=== PATIENT | female | born 1940 | race Caucasian/White ===

== ENCOUNTER 2019-01-23 15:01 | Inpatient (IN) | payer OTHER ==
--- NOTE | 2019-01-23 17:59 | EDPHY ---
H & P Time Seen by Provider: 01/23/19 15:05 HPI/ROS: HPI Tripped and fell. Left arm pain. 78-year-old female by private vehicle with her daughter. This patient currently lives by herself. She reports that prior to arrival she tripped over her pet poodle. She landed on her left side. She complains of isolated left arm pain. She did not hit her head. She denies any neck pain. No loss of consciousness. She is not on anticoagulation or antiplatelet agents. She denies any loss of sensation or weakness in her extremities. Last meal was yesterday. She has not had nothing to eat today. ROS: Constitutional: No fever, no chills. No weakness. Respiratory: No cough. No shortness of breath. Cardiac: No chest pain, no palpitations. Gastrointestinal: No abdominal pain, no vomiting, no diarrhea. Musculoskeletal: No back pain. No neck pain. As above. Denies other extremity pain. Skin: No rashes. No lacerations. She reports a contusion to her left arm. Neurological: No headache. No focal weakness or altered sensation. Past medical history: Hypertension. Social history: Her daughter is with her in the room. She currently lives alone. Nonsmoker. No alcohol. Physical Exam: General Appearance: Alert, she is not distressed. This patient is responding to questions appropriately and in full sentences. The patient is very thin in stature. She appears well hydrated. Head: Normocephalic atraumatic. Face: Facial bones are stable on palpation. Eyes: Pupils equal and round and reactive to light, no pallor or injection. No lid erythema or edema. ENT, Mouth: Mucous membranes moist. Dentition is intact. No malocclusion of the jaw. No tongue lacerations or abrasions. Pharynx is clear. The bilateral nasal canals are clear. No septal hematoma. Respiratory: There are no retractions, lungs are clear to auscultation with good air movement bilaterally. Chest wall is stable to AP and lateral palpation. Cardiovascular: Regular rate and rhythm. No murmur. Gastrointestinal: Abdomen is soft and nontender, no masses, bowel sounds normal. Neurological: Motor sensory function is intact. Cranial nerves are normal. Cerebellar function intact. Skin: Warm and dry, no rashes. No lacerations, abrasions or contusions. Musculoskeletal: Neck is supple and nontender. The trachea is midline. No midline cervical, thoracic, lumbar or sacral tenderness on palpation. No flank tenderness on palpation. Left upper extremity significant for swelling and ecchymosis mid to proximal arm. This is tender on palpation. She has pain in this area with any attempted active or passive motion. The left glenohumeral joint appears intact. The skin is intact in the left upper extremity is neurovascularly intact. Extremities are symmetrical, full range of motion except noted. All joints in the bilateral upper and bilateral lower extremities range without pain or impingement except noted. No tenderness on palpation of the long bones in the bilateral upper and bilateral lower extremities except noted. Psychiatric: No agitation. No depression. Database: EKG: Imaging: Left shoulder x-ray series: Transverse fracture through the surgical neck of the humerus with medial displacement of the proximal humerus. The glenohumeral joint appears intact. Procedures: Emergency department course: Triage vital signs reviewed. She is mildly tachycardic. Vital signs are otherwise unremarkable. She is afebrile. Patient sent for x-rays. 5:45 p.m., the patient was re-evaluated, results of x-ray and diagnosis of fracture of the proximal humerus discussed with her and her daughter. The patient's left upper extremity was placed in a sling. The left upper extremity is neurovascularly intact. Orthopedics paged. 5:50 p.m., spoke with Dr. Zac Wynn of the Orthopedic service. Case discussed with him in detail. He feels that surgical management as well as nonsurgical management her viable options. Given the patient's level of pain. On the fact that she lives alone. Plan will be to admit her to the hospitalist service have her evaluated by Dr. Wynn and then dispositioned by Dr. Wynn of the hospitalist service. This plan was discussed with the patient and her daughter. They both endorse. Hospitalist paged. 6:00 p.m., spoke with on-call hospitalist. Case discussed in detail. Patient accepted for admission to the hospitalist service with Orthopedics to consult as noted above. The patient's remaining emergency department course under my care has been uneventful. The patient was admitted in stable condition to the hospitalist service. 6:05 p.m., spoke with Dr. Wynn. He has looked at the x-rays. He now feels that the patient will require operative management. Plan as above. He will see this patient on the floor this afternoon. 6:20 p.m., spoke with on-call hospitalist Dr. Nicholas. Case discussed in detail with her. She accepts this patient for admission to the hospitalist service. The patient's remaining emergency department course under my care has been uneventful. The patient was admitted in stable condition to the hospitalist service. Differential Diagnosis: The differential diagnosis on this patient includes but is not limited to ground level fall, closed left humerus surgical neck fracture. Traumatic brain injury, cervical spine injury, other significant traumatic injury the noted unlikely. This represents a partial list of diagnoses considered. These considerations are based on history, physical exam, past history, reassessment and diagnostic testing. Smoking Status: Current some day smoker Constitutional: Initial Vital Signs Temperature (C) 36.6 C 01/23/19 15:12 Heart Rate 118 H 01/23/19 15:12 Respiratory Rate 18 01/23/19 15:12 Blood Pressure 105/72 01/23/19 15:12 O2 Sat (%) 90 L 01/23/19 15:12 O2 Delivery Mode Room Air O2 (L/minute) 3 Allergies/Adverse Reactions: No Known Allergies Allergy (Unverified 01/23/19 15:16) Home Medications: Medication Instructions Recorded Brimonidine Tartrate [Brimonidine 1 drop RTEYE BID 01/23/19 Tartrate] Dorzolamide/Timolol [Cosopt (*)] 1 drop EACHEYE BID 01/23/19 amLODIPine BESYLATE [Amlodipine 5 mg PO HS 01/23/19 Besylate] Medical Decision Making - Data Points Laboratory Results: Laboratory Results 01/24/19 03:24 01/24/19 03:24 Medications Given: Hydrocodone Bitart/Acetaminophen ([place] 5/325) 0.5 - 1 tab PO Q4HRS PRN PRN Reason: Pain, Moderate Able to Take PO Stop: 02/02/19 19:06 Last Admin: 01/27/19 05:54 Dose: 1 tab Amlodipine Besylate (Norvasc) 5 mg PO HS [facility] Stop: 07/22/19 20:59 Last Admin: 01/26/19 21:02 Dose: 5 mg Brimonidine Tartrate ([place]ph[place] 0.2%) 1 drops RTEYE BID [facility] Stop: 07/22/19 20:59 Last Admin: 01/26/19 21:10 Dose: Not Given Dorzolamide/Timolol (Cosopt) 1 drops EACHEYE BID [facility] Stop: 07/22/19 20:59 Last Admin: 01/26/19 21:03 Dose: 1 drop Enoxaparin Sodium (Lovenox) 30 mg SC Q24H [facility] Stop: 07/25/19 15:59 Last Admin: 01/26/19 17:05 Dose: 30 mg Discontinued Medications Enoxaparin Sodium (Lovenox) 30 mg SC ONCE ONE Stop: 01/24/19 15:31 Last Admin: 01/24/19 17:55 Dose: Not Given Enoxaparin Sodium (Lovenox) 30 mg SC ONCE ONE Stop: 01/24/19 18:01 Last Admin: 01/24/19 18:00 Dose: 30 mg Fentanyl (Sublimaze) 25 - 100 mcg IVP Q5M PRN PRN Reason: PACU, IMMEDIATE Pain control Stop: 01/25/19 17:24 Last Admin: 01/25/19 17:55 Dose: 50 mcg Sodium Chloride (Ns) 1,000 mls @ 50 mls/hr IV CONT [facility] Stop: 01/24/19 15:14 Last Admin: 01/23/19 21:58 Dose: 1,000 mls Cefazolin Sodium/Dextrose (Ancef) 100 mls @ 200 mls/hr IV ONCALL ONE PRN Reason: Protocol Stop: 01/25/19 08:52 Last Admin: 01/25/19 15:20 Dose: 100 mls Potassium Chloride/Dextrose/Sod Cl (D5w 1/2 Ns W/ 20 Kcl/L) 1,000 mls @ 75 mls/ hr IV CONT [facility] Stop: 07/24/19 11:29 Last Admin: 01/26/19 00:17 Dose: 1,000 mls Lactated Ringer's (Lr) 1,000 mls @ 0 mls/hr IV ONCE ONE PRN Reason: KVO Stop: 01/25/19 13:32 Last Admin: 01/25/19 13:59 Dose: 1,000 mls Cefazolin Sodium/Dextrose (Ancef) 100 mls @ 200 mls/hr IV Q8H [facility] PRN Reason: Protocol Stop: 01/26/19 07:29 Last Admin: 01/26/19 06:30 Dose: 100 mls Ropivacaine (Naropin) Confirm Administered Dose 20 mg EP .STK-MED ONE Stop: 01/25/19 13:16 Last Admin: 01/25/19 16:33 Dose: 20 mg Ropivacaine (Naropin) Confirm Administered Dose 20 mg EP .STK-MED ONE Stop: 01/25/19 15:49 Last Admin: 01/25/19 16:33 Dose: 20 mg Departure - Departure Disposition: [facility] Inpatient Acute Clinical Impression: Fall from ground level, Closed fracture of humerus
[2019-01-23 18:35] LABS: PLATELET COUNT 150 10^3/uL (150-400)
[2019-01-23 18:49] LABS: INR 1.02 (0.83-1.16)
[2019-01-23] MEDS ORDERED: ONDANSETRON DISINTEGRATING 4 MG TAB PO PRN (19:07)
[2019-01-23] MEDS ORDERED: ONDANSETRON 4 MG/2 ML VIAL IVP PRN (19:07)
[2019-01-23] MEDS ORDERED: ACETAMINOPHEN 325 MG TAB PO PRN (19:07)
[2019-01-23] MEDS ORDERED: HYDROmorphONE/DILAUDID 1 MG/ML INJ IVP PRN (19:07)
[2019-01-23] MEDS ORDERED: METOPROLOL TARTRATE 5 MG/5 ML INJ IVP PRN (19:13)
[2019-01-23] MEDS ORDERED: NS 1,000 ML IV SCH (19:15)
--- NOTE | 2019-01-23 19:21 | PDGENHP ---
History and Physical - Chief Complaint Fall, left arm pain - History of Present Illness Source-patient goes by the name of Lisette. She is able to provide majority of the history. She is a good historian but cannot recall dosing and names of her medications. EMR was reviewed and case discussed with ED provider. HPI - this is a pleasant 78-year-old female with past medical history significant for HTN, osteoporosis, glaucoma and remote history of gastric ulcer who presents emergency department today following a mechanical trip and fall at home. Patient reports she got up at 3:00 a.m. At home she was trying to get out of bed in her small pleural was on the floor. She tripped over the dog and landed on left side. She had immediate left arm and shoulder pain worse with any movement. She denies hitting her head. She denies any changes in vision or headache. She denies any numbness or tingling in her extremity. She has not been able to move her arm. She has noted some swelling around the proximal portion of her arm. She has also noted some bruising on her legs as well from trying to pull herself up. Patient was otherwise in her usual state of health before the incident. Patient's daughter brings the patient in by private vehicle this afternoon. History Information - Allergies/Home Medication List Allergies/Adverse Reactions: No Known Allergies Allergy (Unverified 01/23/19 15:16) Home Medications: Brimonidine Tartrate [Brimonidine Tartrate] 1 drop RTEYE BID 01/23/19 [Last Taken 01/23/19 08:00] Dorzolamide/Timolol [Cosopt (*)] 1 drop EACHEYE BID 01/23/19 [Last Taken 08:00] amLODIPine BESYLATE [Amlodipine Besylate] 5 mg PO HS 01/23/19 [Last Taken ] I have personally reviewed and updated: family history, medical history, social history, surgical history - Past Medical History Additional medical history: HTN, glaucoma, osteoporosis, gastric ulcer remotely - Surgical History Additional surgical history: ORIF of the right proximal femur (this is after patient's other poodle pulled her by leash). ex-lap/partial gastrectomy 1980s for ulcer. - Family History Additional family history: mother - osteoporosis - Social History Smoking Status: Light smoker Tobacco Use: Cigarettes (few cig occasionally) Alcohol Use: Occasionally Drug Use: None Additional social history: Patient lives independently at home. She uses a cane at baseline. Her daughter lives in town provides additional support. Cor status-full. Review of Systems Review of Systems: ROS: 10pt was reviewed & negative except for what was stated in HPI & below Physical Exam Physical Exam: Selected Entries 01/23/19 15:12 Blood Pressure Automatic Method Heart Rate 118 H Respiratory 18 Rate O2 Sat (%) 90 L Temperature (C) 36.6 C Blood Pressure 105/72 Mean Arterial 83 Pressure (MAP) O2 Delivery Room Air Mode Temperature Oral Source Temp Pulse Resp BP Pulse Ox 36.6 C 112 H 17 121/78 H 98 01/23/19 15:12 01/23/19 16:00 01/23/19 16:00 01/23/19 16:00 01/23/19 16:38 Constitutional: no apparent distress, chronically ill appearing, uncomfortable, cachectic, other (NAD. Patient is sitting up in bed. Her left arm is in a sling and she is appears comfortable. Very thin frail lady who appears older than stated age.) Eyes: PERRL (Right pupil slightly greater than the left.), anicteric sclera, EOMI, No scleral injection Ears, Nose, Mouth, Throat: dry mucous membranes, other (No nasal discharge.), No hard of hearing Cardiovascular: regular rate and rhythym, no murmur, rub, or gallop, pulses symmetric bilaterally, tachycardia, No edema Peripheral Pulses: 1+: dorsalis-pedis (R), dorsalis-pedis (L) Respiratory: no respiratory distress, no rales or rhonchi, clear to auscultation , No inspiratory crackles Gastrointestinal: normoactive bowel sounds, soft, non-tender abdomen, no palpable masses, No distension Genitourinary: no bladder tenderness, No ray in urethra Skin: warm, abrasion (The right lateral knee, left anterior knee), other ( Ecchymosis of the left proximal arm at site of deformity.) Musculoskeletal: pain with ROM, generalized weakness, other (Left arm is in a sling. There is a notable deformity in the proximal arm. Ecchymosis is present.) Neurologic: AAOx3, sensation intact bilaterally, CN II-XII Intact, other ( Grossly nonfocal exam. Limited exam of the left upper extremity due to fracture as noted above. Sensation is intact.), No facial droop Psychiatric: interacting appropriately, not anxious, not encephalopathic, thought process linear, poor memory (Patient is unable to recall names of her medications or dosing.) Lab Data & Imaging Review 01/23/19 18:15 01/23/19 18:15 WBC 8.76 10^3/uL (3.80-9.50) 01/23/19 18:15 RBC 3.52 10^6/uL (4.18-5.33) L 01/23/19 18:15 Hgb 10.9 g/dL (12.6-16.3) L 01/23/19 18:15 Hct 32.4 % (38.0-47.0) L 01/23/19 18:15 MCV 92.0 fL (81.5-99.8) 01/23/19 18:15 MCH 31.0 pg (27.9-34.1) 01/23/19 18:15 MCHC 33.6 g/dL (32.4-36.7) 01/23/19 18:15 RDW 16.7 % (11.5-15.2) H 01/23/19 18:15 Plt Count 150 10^3/uL (150-400) 01/23/19 18:15 MPV 10.2 fL (8.7-11.7) 01/23/19 18:15 Neut % (Auto) 86.2 % (39.3-74.2) H 01/23/19 18:15 Lymph % (Auto) 6.7 % (15.0-45.0) L 01/23/19 18:15 [place] % (Auto) 6.7 % (4.5-13.0) 01/23/19 18:15 Eos % (Auto) 0.0 % (0.6-7.6) L 01/23/19 18:15 Baso % (Auto) 0.1 % (0.3-1.7) L 01/23/19 18:15 Nucleat RBC Rel Count 0.0 % (0.0-0.2) 01/23/19 18:15 Absolute Neuts (auto) 7.55 10^3/uL (1.70-6.50) H 01/23/19 18:15 Absolute Lymphs (auto) 0.59 10^3/uL (1.00-3.00) L 01/23/19 18:15 Absolute Monos (auto) 0.59 10^3/uL (0.30-0.80) 01/23/19 18:15 Absolute Eos (auto) 0.00 10^3/uL (0.03-0.40) L 01/23/19 18:15 Absolute Basos (auto) 0.01 10^3/uL (0.02-0.10) L 01/23/19 18:15 Absolute Nucleated RBC 0.00 10^3/uL (0-0.01) 01/23/19 18:15 Immature Gran % 0.3 % (0.0-1.1) 01/23/19 18:15 Immature Gran # 0.03 10^3/uL (0.00-0.10) 01/23/19 18:15 RBC/WBC/PLT Morphology TNP 01/23/19 18:15 Platelet Estimate TNP 01/23/19 18:15 PT 13.0 SEC (12.0-15.0) 01/23/19 18:15 INR 1.02 (0.83-1.16) 01/23/19 18:15 APTT 24.7 SEC (23.0-38.0) 01/23/19 18:15 Sodium 130 mEq/L (135-145) L 01/23/19 18:15 Potassium 4.1 mEq/L (3.5-5.2) 01/23/19 18:15 Chloride 97 mEq/L (97-110) 01/23/19 18:15 Carbon Dioxide 24 mEq/l (22-31) 01/23/19 18:15 Anion Gap 9 mEq/L (6-14) 01/23/19 18:15 BUN 14 mg/dL (7-23) 01/23/19 18:15 Creatinine 0.8 mg/dL (0.6-1.0) 01/23/19 18:15 Estimated GFR > 60 01/23/19 18:15 Glucose 100 mg/dL (70-100) 01/23/19 18:15 Calcium 8.8 mg/dL (8.5-10.4) 01/23/19 18:15 Imaging Review: Left Shoulder, 2 Views, at 4:18 PM Clinical History: 78-year-old female with arm pain after a fall, and a visible deformity with swelling. Comparison Studies: None. Findings: There is a medially and anteriorly displaced fracture involving the surgical neck of the left humerus, with partial comminution. The humeral head is still anatomically aligned relative to the glenoid, although there is a mild increase in the acromiohumeral distance, which may reflect an underlying joint effusion. The coracoclavicular distance is normal. The bones are demineralized. The visualized left rib cage is intact. Calcified granulomata are present in the left perihilar and subcarinal distributions, as well as tracheobronchial tree calcification noted. There is a rotatory thoracic scoliosis, which is incompletely imaged. Impression: Acute displaced fracture involving the proximal left humerus at the surgical neck. Dictated By: Joaquin Damian MD Visualized and Interpreted Chest x-ray results: Yes Visualized and Interpreted imaging results: Yes EKG additional interpertation: EKG has been ordered for tachycardia. Assessment & Plan Assessment: Patient goes by the name "Lisette" This is a pleasant 78-year-old female with past medical history significant for HTN, osteoporosis, glaucoma and remote history of gastric ulcer who presents emergency department today following a mechanical trip and fall at home. #Closed fracture of proximal humerus (Acute) - due to mechanical trip and fall. Patient with displaced fracture of the proximal humerus. Dr. Wynn with Orthopedic surgery has been consulted. After discussion with ED provider appears he has been able to review the image and anticipate patient will require surgical intervention. He will assess the patient when she has arrived to the floor. She will be left NPO additional diet orders as per Dr. Wynn. Type and screen will be ordered as patient appears to have a history of anemia. #Fall from ground level (Acute) #Acute pain due to trauma - Tylenol, low-dose Nunn, low-dose Dilaudid p.r.n.. Patient is not chronically on any narcotics will monitor closely. #tachycardia - likely some component of pain however patient's heart rate remains in the 110s. will obtain ekg anticipating surgery. Currently patient' s pain is 3/10. Aside from history of hypertension patient denies any other cardiac history. #Anemia - previous lab studies noted that patient has history of anemia. Appears close to this baseline. No evidence of active bleeding but she does have bruising at the site of her fracture. Type and screen has been ordered. #Hyponatremia - review of records reveals patient with a chronic hyponatremia. At this time she does appear to be some dry. Will add some IV fluid supplementation as she is to be NPO. She is last eaten yesterday. #benign essential HTN - blood pressures are acceptable at this time. Will monitor. Metoprolol p.r.n.. Amlodipine at HS. # glaucoma - patient's daughter is bringing her eyedrops can resume when available. FEN - IVF while NPO. electrolyte monitoring and replacement prn. diet NPO as per ortho. PPX - SCDs. holding anticoagulation anticipating surgery. Cor status-full. Disposition-patient admitted to observation status on the [facility] floor pending orthopedic evaluation treatment.
[2019-01-23] MEDS: HYDROCODONE/APAP 5/325 TAB PO PRN ×2 (21:58→23:17)
[2019-01-23] MEDS: BRIMONIDINE 0.2% 5 ML OPHT.BTL RTEYE SCH (22:08)
[2019-01-23] MEDS: DORZOLAMIDE/TIMOLOL 10 ML OPHT.BTL EACHEYE SCH (22:08)
--- NOTE | 2019-01-23 22:33 | GCON ---
[f rep st] CONSULTATION ORTHOPEDIC ER CONSULT DATE OF CONSULTATION: 01/23/2019 CHIEF COMPLAINT: Left shoulder pain. DIAGNOSIS: Displaced surgical neck fracture, left shoulder, nondominant. HISTORY OF PRESENT ILLNESS: The patient is a 78-year-old female who lives in [place], [facility]. She aguilar s a puppy. She tripped over her puppy and fell onto her left side. Her daughter was at the bedside during the history and physical. Please see details of ER H and P. PHYSICAL EXAMINATION: GENERAL: Pertinent orthopedic examination reveals a frail-appearing woman. S HOULDERS: Left shoulder was tender and swollen. Right shoulder nonpainful. ABDOMEN: Soft. EXTREM ITIES: Bilateral lower extremities with excellent range of motion and no pain. NEUROLOGIC: Sensati on is to intact to light touch to the axillary, median, radial, and ulnar distributions. X-rays of the left shoulder reveal a displaced surgical neck fracture. Mild arthritic changes around the humeral head. The shaft is medially displaced. IMPRESSION/ RECOMMENDATION: Left proximal humerus fracture. For pain control and living at home randy rotiz, I think it would be vaughn for her to have admission for disposition and possibly physical therapy, occupational therapy. I discussed at the bedside with her and her daughter surgical and nonsurgical options. At this point in time, they are going to think about this. Sometimes these fractures do e nd up settling into a better position. It is her nondominant hand. However, the amount of displacem ent does worry me a bit. We are going to get some serial x-rays during the hospital visit and see if her position improves in the sling. /[id number]/MODL
[2019-01-23] MEDS: amLODIPine BESYLATE 5 MG TAB PO SCH (23:13)
[2019-01-24] MEDS: HYDROCODONE/APAP 5/325 TAB PO PRN ×3 (04:09→20:52)
[2019-01-24 04:22] LABS: PLATELET COUNT 145 10^3/uL (150-400)
[2019-01-24] MEDS: BRIMONIDINE 0.2% 5 ML OPHT.BTL RTEYE SCH ×2 (11:33→20:45)
[2019-01-24] MEDS: DORZOLAMIDE/TIMOLOL 10 ML OPHT.BTL EACHEYE SCH ×2 (11:34→20:45)
--- NOTE | 2019-01-24 13:16 | SOAPPROG ---
[facility] Progress Note Assessment/Plan: Assessment: persistent L surgical neck fx. no change in position Plan: 01/24/19 13:13 long discussion at bedside surg and non surg options she would like to get this reduced and fixed. I discussed the possibility of waiting a few more days to let this settle out and have the muscles relax and the fracture to lengthen out. I also discussed the bone mineral quality with regards to plate fixation She would like to proceed with surgery. I have her scheduled for 2PM on Friday. ORIF Left proximal humerus. NPO after midnight Subjective: HD 1. More mobile. Less swelling lower legs. interval films today Objective: Vital Signs Temp Pulse Resp BP Pulse Ox 36.6 C 95 18 101/58 L 83 L 01/24/19 08:00 01/24/19 08:00 01/24/19 08:00 01/24/19 08:00 01/24/19 10:45 Laboratory Results 01/24/19 03:24 01/24/19 03:24 01/23/19 01/24/19 01/25/19 05:59 05:59 05:59 Intake Total 450 Output Total 300 Balance 150 PT 13.0 SEC (12.0-15.0) 01/23/19 18:15 INR 1.02 (0.83-1.16) 01/23/19 18:15 swollen L shoulder. mobile hand 3 v L shoulder xrays with medial displaced shaft, persistent. No improvement since prior films ICD10 Worksheet Patient Problems: Problems Problem Status Onset Closed fracture of humerus Acute Fall from ground level Acute
--- NOTE | 2019-01-24 14:44 | ASMTCMCOM ---
CM Note CM Note Notes: 01/24/2019 Case Management Note Discussed pt during rounds this morning. Pt admitted for closed left humerus fracture. Surgery is planned for 1399. Therapy evals are pending. Discharge needs will be determined after surgery. Case Management d/c poc: to be determined. Case Management to follow. Date Signed: 01/24/2019 02:44 PM Electronically Signed By:Trice Moscoso RN
--- NOTE | 2019-01-24 14:49 | HOSPPROG ---
Hospitalist Progress Note Assessment/Plan: 78-year-old female with h/o HTN, osteoporosis, glaucoma admitted with humerus fracture after mechanical fall #Closed fracture of proximal humerus (Acute) - displaced, appreciate orthopedic assistance. -to OR tomorrow for surgical repair -pain control #Fall from ground level #Hypoxemia - 83% on room air, requiring 2 LPM, not on O2 at home, query undiagnosed COPD -check CXR #tachycardia - possibly related to pain, HR a bit better in the 90's after IVF's #Anemia - chronic, near baseline #Hyponatremia - improved after NS #Hypertension - cont home norvasc #glaucoma - cont home drops #tobacco abuse #dvt pplx - will give lovenox today, hold tomorrow for surgery Cor status-full. Disposition- change to inpt as surgery is planned for tomorrow Subjective: Pt feels ok. Pain is fairly well controlled. She does not use O2 at home, smokes occassionally. Denies CP, SOB or cough. Objective: Vital Signs Temp Pulse Resp BP Pulse Ox 36.6 C 95 18 101/58 L 83 L 01/24/19 08:00 01/24/19 08:00 01/24/19 08:00 01/24/19 08:00 01/24/19 10:45 Laboratory Results 01/24/19 03:24 01/24/19 03:24 01/23/19 01/24/19 01/25/19 05:59 05:59 05:59 Intake Total 450 Output Total 300 Balance 150 PT 13.0 SEC (12.0-15.0) 01/23/19 18:15 INR 1.02 (0.83-1.16) 01/23/19 18:15 - Physical Exam Constitutional: no apparent distress Eyes: PERRL Ears, Nose, Mouth, Throat: moist mucous membranes Cardiovascular: regular rate and rhythym Respiratory: no respiratory distress, reduced air movement Gastrointestinal: normoactive bowel sounds, soft, non-tender abdomen Skin: warm Musculoskeletal: full muscle strength, other (Left arm in sling) Neurologic: AAOx3 Psychiatric: interacting appropriately ICD10 Worksheet Patient Problems: Problems Problem Status Onset Closed fracture of humerus Acute Fall from ground level Acute
[2019-01-24] MEDS ORDERED: ENOXAPARIN 40 MG/0.4 ML SYR SC ONE (14:52)
[2019-01-24] MEDS ORDERED: ENOXAPARIN 30 MG/0.3 ML SYR SC ONE ×2 (15:30→18:00)
--- NOTE | 2019-01-24 17:18 | PDMN ---
Medical Necessity Medical necessity: [facility] General Admission: 78 yo w/ acute closed fx proximal humerus due to mechanical fall. Ortho consult. Plan for OR tomorrow for ORIF. Initially OBS but during hospital stay pt developed hypoxemia 83% on RA requiring O2 which is new, query undx COPD, check CXR, and pt cont to be tachycardic beyond OBS care >100. Meets [facility] IP criteria for gen admit with persistent tachycardia and new onset hypoxemia persistent beyond OBS care. Change to IP status 01/24/19@1446 per MD order.
[2019-01-24] MEDS: amLODIPine BESYLATE 5 MG TAB PO SCH (20:45)
[2019-01-25] MEDS: HYDROCODONE/APAP 5/325 TAB PO PRN ×3 (04:54→22:10)
[2019-01-25] MEDS ORDERED: ceFAZolin 2 GM/DEXTROSE 100 ML IV ONE (08:23)
--- NOTE | 2019-01-25 08:30 | PDHPUP ---
History & Physical Update H&P update statement: This history and physical update is based on an assessment of the patient which was completed after admission or registration (within 24 hours), but prior to the surgery/procedure. Patient Name: MARC DIOR Date of : 1940 Patient Status: Inpatient Attending Provider: Shreya Lund Date: 01/25/19 08:27 Initialization Date: 01/25/19 08:27 History & Physical Chief Complaint: L arm pain History of Present Illness: L humerus fracture Relevant Physical Exam: Constitutional: no apparent distress. Skin: ( Ecchymosis of the left proximal arm at site of deformity.). Musculoskeletal: pain with ROM, generalized weakness, other (Left arm is in a sling. There is a notable deformity in the proximal arm. Ecchymosis is present.). Neurologic: AAOx3. (Grossly nonfocal exam. Limited exam of the left upper extremity due to fracture as noted above. Sensation is intact.)
--- NOTE | 2019-01-25 08:33 | PDHPUP ---
History & Physical Update H&P update statement: This history and physical update is based on an assessment of the patient which was completed after admission or registration (within 24 hours), but prior to the surgery/procedure. H&P update: no change in patient's condition since H&P completed
[2019-01-25] MEDS: DORZOLAMIDE/TIMOLOL 10 ML OPHT.BTL EACHEYE SCH ×2 (09:16→22:15)
[2019-01-25] MEDS: BRIMONIDINE 0.2% 5 ML OPHT.BTL RTEYE SCH ×2 (09:16→22:45)
[2019-01-25] MEDS: D5W 1/2 NS W/ 20 KCl/L 1,000 ML IV SCH (11:37)
[2019-01-25] MEDS ORDERED: ROPIVACAINE HCL 20 MG/10 ML INJ EP ONE ×2 (13:15→15:48)
[2019-01-25] MEDS ORDERED: LR 1,000 ML IV ONE (13:31)
[2019-01-25] MEDS ORDERED: CEFAZOLIN 2 GM/DEXTROSE/100 ML BAG IV ONE (14:01)
--- NOTE | 2019-01-25 14:11 | PDANEPAE ---
ANE History of Present Illness left proximal humerus fracture ANE Past Medical History - Cardiovascular History Hx Hypertension: Yes Hx Arrhythmias: No Hx Chest Pain: No Hx Coronary Artery / Peripheral Vascular Disease: No - Pulmonary History Hx COPD: No Hx Asthma/Reactive Airway Disease: No Hx Oxygen in Use at Home: No Hx Sleep Apnea: No Sleep Apnea Screening Result - Last Documented: Negative - Endocrine History Hx Diabetes: No - Other Health History Other Health History: Anemia - Chronic Pain History Chronic Pain: Yes ANE Review of Systems Review of Systems: - Systems Hematologic/Lymphatic: Reports: anemia ANE Patient History - Allergies Allergies/Adverse Reactions: No Known Allergies Allergy (Unverified 01/23/19 15:16) - Home Medications Home medications: home medication list seen and reviewed Home Medications: Brimonidine Tartrate [Brimonidine Tartrate] 1 drop RTEYE BID 01/23/19 [Last Taken 01/23/19 08:00] Dorzolamide/Timolol [Cosopt (*)] 1 drop EACHEYE BID 01/23/19 [Last Taken 08:00] amLODIPine BESYLATE [Amlodipine Besylate] 5 mg PO HS 01/23/19 [Last Taken ] - NPO status NPO Since - Liquids (Date): 01/25/19 NPO Since - Liquids (Time): 00:00 NPO Since - Solids (Date): 01/25/19 NPO Since - Solids (Time): 00:00 - Anes Hx Anes Hx: no prior problems - Smoking Hx Smoking Status: Light smoker - Alcohol Use Alcohol Use: Occasionally ANE Labs/Vital Signs - Labs Result Diagrams: 01/25/19 04:41 01/24/19 03:24 - Vital Signs Blood Pressure: 121/70 Heart Rate: 82 Respiratory Rate: 16 O2 Sat (%): 98 Height: 157.48 cm Weight: 34.8 kg ANE Physical Exam - Airway Mallampati Score: Class 2 Mouth exam: poor dentition (Partial plate) - Pulmonary Pulmonary: no respiratory distress - Cardiovascular Cardiovascular: regular rate and rhythym - ASA Status ASA Status: III ANE Anesthesia Plan Anesthesia Plan: general endotracheal anesthesia (Possible block in PACU if significant pain)
[2019-01-25] MEDS ORDERED: ROCURONIUM 50 MG/5 ML VIAL ONE (14:59)
[2019-01-25] MEDS ORDERED: fentaNYL 100 MCG/2 ML INJ ONE ×2 (15:00→17:29)
[2019-01-25] MEDS ORDERED: PROPOFOL 200 MG/20 ML VIAL ONE (15:00)
[2019-01-25] MEDS ORDERED: ONDANSETRON 4 MG/2 ML VIAL ONE (16:22)
[2019-01-25] MEDS ORDERED: NALOXONE HCL 0.4 MG/ML INJ IVP PRN (16:24)
[2019-01-25] MEDS ORDERED: ONDANSETRON 4 MG/2 ML VIAL IVP PRN (16:24)
[2019-01-25] MEDS ORDERED: HYDROmorphONE/DILAUDID 1 MG/ML INJ IVP PRN (16:24)
[2019-01-25] MEDS ORDERED: SUGAMMADEX SODIUM 200 MG/2 ML VIAL IVP ONE (16:34)
--- NOTE | 2019-01-25 16:49 | HOSPPROG ---
Hospitalist Progress Note Assessment/Plan: Attempted to see pt this afternoon, but she is in the OR. Will see tomorrow. 78-year-old female with h/o HTN, osteoporosis, glaucoma admitted with humerus fracture after mechanical fall #Closed fracture of proximal humerus (Acute) - displaced, appreciate orthopedic assistance. -OR today -pain control #Fall from ground level #Hypoxemia - CXR without acute cardiopulmonary abnormality, but severe scoliosis noted, which may be impeding oxygenation #tachycardia - better today #Anemia - chronic, near baseline #Hyponatremia - improved after NS #Hypertension - cont home norvasc #glaucoma - cont home drops #tobacco abuse #dvt pplx - hold lovenox today, resume 24 hrs post-op Cor status-full. Disposition- cont inpt, PT/OT Objective: Vital Signs Temp Pulse Resp BP Pulse Ox 36.8 C 82 16 121/70 H 98 01/25/19 12:50 01/25/19 15:44 01/25/19 15:44 01/25/19 15:44 01/25/19 15:44 Laboratory Results 01/25/19 04:41 01/24/19 01/25/19 01/26/19 05:59 05:59 05:59 Intake Total 275 Output Total 75 250 Balance 200 -250 PT 13.0 SEC (12.0-15.0) 01/23/19 18:15 INR 1.02 (0.83-1.16) 01/23/19 18:15 ICD10 Worksheet Patient Problems: Problems Problem Status Onset Closed fracture of humerus Acute Fall from ground level Acute
--- NOTE | 2019-01-25 16:59 | GOP ---
[f rep st] OPERATIVE REPORT DATE OF OPERATION: SURGEON: Vahid Wynn MD [employer]ANT OPERATOR: Raji Soliz MD medically required for positioning of the arm during open reduction, i nternal fixation of left proximal humerus fracture, and careful retraction of vital neurovascular str uctures. PREOPERATIVE DIAGNOSIS: Displaced surgical neck fracture, left proximal humerus. POSTOPERATIVE DIAGNOSIS: Displaced surgical neck fracture, left proximal humerus. PROCEDURE PERFORMED: Open reduction, internal fixation of left proximal humerus fracture with a Synt hes precontoured proximal humeral locking plate. FINDINGS: ESTIMATED BLOOD LOSS: Minimal. INDICATIONS: A 78-year-old female, lives alone. Nondominant hand. Left proximal humerus fracture a fter mechanical fall. Please see details of ER H and P. DESCRIPTION OF PROCEDURE: The patient was identified in the preoperative holding area. Consent, lat erality and preoperative antibiotics were confirmed to be delivered. All questions were answered. Patient brought into the operating room. General anesthesia. 30 degree head of bed, beach chair. A nticipate using the padded Granado. Left upper extremity prepped and draped in sterile fashion. Surgic al time-out was performed. Standard deltopectoral interval. We took the cephalic vein laterally, as it was natural for her to do that. The deltoid was taken lateral and posteriorly. The fracture was identified. Surgical neck fracture. The biceps was identified. We took it out to length, distract ed the shaft laterally and impacted into the humeral head defect. Upon probing, the humeral head was osteoporotic except for the subarticular surface, which felt like it had pretty decent bone. A plat e was chosen with the arm in internal rotation. Just lateral to the bicipital groove we placed the s liding screw hole and then K-wires proximally, and under fluoroscopic view found this to be reasonabl y anatomic. We filled in the remainder of the screws and we took the arm through a rotation of the h and at the belly, external rotation of 45 degrees and abduction of 90 degrees without any impingement , and it moved as a unit without any screws in the joint line on the Grashey view. The wound was copiously washed out with 100 cc of warm normal saline. We tacked down the deltopector al interval with a 2-0 PDS, and we did mattress sutures 3-0 nylon for skin. Sterile dressing was yenny lied with Mepilex. COMPLICATIONS: None. DISPOSITION: Extubated to PACU in stable condition. /[id number]/MODL
--- NOTE | 2019-01-25 16:59 | POSTANESTH ---
Post Anesthetic Evaluation Cardiovascular Status: Similar to Pre-Op Cond Respiratory Status: Similar to Pre-op Cond. Level of Consciousness/Mental Status: Alert and Oriented Pain Control: Adequate, Prn Tx Ordered Nausea/Vomiting Control: Adequate, Prn Tx Ordered Complications Possibly Related to Anesthesia: None Noted (Pain well controlled presently. If should have significant discomfort may consider supraclavicular or ISB.)
[2019-01-25] MEDS: fentaNYL 100 MCG/2 ML INJ IVP PRN ×3 (17:30→17:55)
[2019-01-25] MEDS: amLODIPine BESYLATE 5 MG TAB PO SCH (22:11)
[2019-01-25] MEDS: ceFAZolin 2 GM/DEXTROSE 100 ML IV SCH (22:32)
[2019-01-26] MEDS: D5W 1/2 NS W/ 20 KCl/L 1,000 ML IV SCH (00:17)
[2019-01-26] MEDS: HYDROCODONE/APAP 5/325 TAB PO PRN ×3 (03:10→18:03)
[2019-01-26] MEDS: ceFAZolin 2 GM/DEXTROSE 100 ML IV SCH (06:30)
[2019-01-26] MEDS: DORZOLAMIDE/TIMOLOL 10 ML OPHT.BTL EACHEYE SCH ×3 (08:16→21:03)
[2019-01-26] MEDS: BRIMONIDINE 0.2% 5 ML OPHT.BTL RTEYE SCH ×2 (08:30→21:10)
--- NOTE | 2019-01-26 11:25 | SOAPPROG ---
SOAP Progress Note Assessment/Plan: Assessment: POD 1 L proximal humerus fracture ORIF H&H ordered today due to trending downward Continue pain management Start PT/OT D/C TBD Plan: 01/26/19 11:22 01/26/19 11:26 01/26/19 11:27 Subjective: Annabel is doing very well, POD 1. She was relaxing in bed, about to order breakfast. Pain with movement, but no pain when resting in bed. 01/26/19 11:24 Objective: Vital Signs Temp Pulse Resp BP Pulse Ox 36.9 C 78 22 H 121/64 H 98 01/26/19 11:09 01/26/19 11:09 01/26/19 11:09 01/26/19 11:09 01/26/19 11:09 Laboratory Results 01/26/19 10:02 01/25/19 01/26/19 01/27/19 05:59 05:59 05:59 Intake Total 275 1250 750 Output Total 75 1200 Balance 200 50 750 PT 13.0 SEC (12.0-15.0) 01/23/19 18:15 INR 1.02 (0.83-1.16) 01/23/19 18:15 Bandage sealed and in place with half-dollar amount sized blood/drainage stain Bruising LUE TTP at and around incision NVI ICD10 Worksheet Patient Problems: Problems Problem Status Onset Closed fracture of humerus Acute Fall from ground level Acute
--- NOTE | 2019-01-26 15:58 | HOSPPROG ---
Hospitalist Progress Note Assessment/Plan: 78-year-old female with h/o HTN, osteoporosis, glaucoma admitted with humerus fracture after mechanical fall #Closed fracture of proximal humerus (Acute) - s/p ORIF, POD #1, doing well -pain control -post-op care per ortho #Fall from ground level #Hypoxemia - CXR without acute cardiopulmonary abnormality, but severe scoliosis noted, which may be impeding oxygenation -wean O2 as able #Anemia - chronic, plus acute blood loss, hgb trending down, no transfusion indicated currently, VSS -follow, transfuse for hgb <7 #Hyponatremia - improved after NS #Hypertension - cont home norvasc #glaucoma - cont home drops #tobacco abuse #dvt pplx - resume lovenox Cor status-full. Disposition- cont inpt, therapy recommending SNF, possibly d/c to SNF in am if approved, will d/w CM Subjective: Pt doing well post-op. Pain fairly well controlled. No CP or SOB. No cough or fever. Objective: Vital Signs Temp Pulse Resp BP Pulse Ox 36.9 C 82 16 135/78 H 99 01/26/19 15:02 01/26/19 15:02 01/26/19 15:02 01/26/19 15:02 01/26/19 15:02 Laboratory Results 01/26/19 10:02 01/25/19 01/26/19 01/27/19 05:59 05:59 05:59 Intake Total 275 1250 950 Output Total 75 1200 150 Balance 200 50 800 PT 13.0 SEC (12.0-15.0) 01/23/19 18:15 INR 1.02 (0.83-1.16) 01/23/19 18:15 - Physical Exam Constitutional: no apparent distress Eyes: PERRL Ears, Nose, Mouth, Throat: moist mucous membranes Cardiovascular: regular rate and rhythym Respiratory: no respiratory distress, clear to auscultation Gastrointestinal: normoactive bowel sounds, soft, non-tender abdomen Skin: warm Musculoskeletal: full muscle strength, other (LUE in sling, distal sensation intact) Neurologic: AAOx3 Psychiatric: interacting appropriately ICD10 Worksheet Patient Problems: Problems Problem Status Onset Closed fracture of humerus Acute Fall from ground level Acute
[2019-01-26] MEDS: ENOXAPARIN 30 MG/0.3 ML SYR SC SCH (17:05)
--- NOTE | 2019-01-26 17:26 | ASMTCMCOM ---
CM Note CM Note Notes: CM met with 78- year old female. Patient goes by the name Lisette. She came in because she fell over her dog and fractured her left humerus. Patient has a history of HTN, osteporosis, glaucoma and remote history of gastric ulcer, and lives alone. Patient's daughter lives in [place]. PT recommends SNF. Spoke with pt and the daughter in the room and pt agreed to [facility] or [facility] stating that daughter will care for dogs while pt is in rehab. Referrals sent. Pt could dc tomorrow if SNF accepts. CM to follow. Plan: [facility] v [facility] Date Signed: 01/26/2019 05:26 PM Electronically Signed By:Merary Lara
[2019-01-26] MEDS: amLODIPine BESYLATE 5 MG TAB PO SCH (21:02)
[2019-01-27] MEDS: HYDROCODONE/APAP 5/325 TAB PO PRN ×2 (05:54→16:41)
[2019-01-27] MEDS: BRIMONIDINE 0.2% 5 ML OPHT.BTL RTEYE SCH ×2 (08:02→21:55)
[2019-01-27] MEDS: DORZOLAMIDE/TIMOLOL 10 ML OPHT.BTL EACHEYE SCH ×2 (08:05→21:54)
[2019-01-27] MEDS ORDERED: MAGNESIUM HYDROXIDE 30 ML UDCUP PO PRN (08:16)
[2019-01-27] MEDS ORDERED: LACTULOSE 20 GM/30 ML UDCUP PO PRN (08:16)
[2019-01-27] MEDS ORDERED: POLYETHYLENE GLYCOL 3350 17 GM PKT PO PRN (08:16)
[2019-01-27] MEDS ORDERED: BISACODYL 10 MG SUPP PR PRN (08:16)
[2019-01-27] MEDS: SENNOSIDES/DOCUSATE SODIUM TAB PO SCH ×2 (11:21→21:48)
--- NOTE | 2019-01-27 12:35 | HOSPPROG ---
Hospitalist Progress Note Assessment/Plan: 78-year-old female with h/o HTN, osteoporosis, glaucoma admitted with humerus fracture after mechanical fall.. First encounter, chart reviewed. #Closed fracture of proximal humerus (Acute) - -s/p ORIF, POD #2, doing well -pain control -post-op care per ortho #Fall from ground level #Hypoxemia - CXR without acute cardiopulmonary abnormality, but severe scoliosis noted, which may be impeding oxygenation -wean O2 as able -chronic tobacco use #Anemia - chronic, plus acute blood loss, hgb trending down, no transfusion indicated currently, VSS -follow, transfuse for hgb <7 #Hyponatremia - improved after NS #Hypertension - cont home norvasc #glaucoma - cont home drops #tobacco abuse #dvt pplx - resume lovenox Cor status-full. Disposition - cont inpt, therapy recommending SNF, - d/c to SNF in am if insurance auth, d/w CM Subjective: In bed. Some pain. No other issues. Objective: Vital Signs Temp Pulse Resp BP Pulse Ox 36.8 C 95 16 126/65 H 2 L 01/27/19 08:00 01/27/19 08:00 01/27/19 08:00 01/27/19 08:00 01/27/19 08:00 Laboratory Results 01/27/19 04:19 01/26/19 01/27/19 01/28/19 05:59 05:59 05:59 Intake Total 1250 1200 Output Total 1200 550 Balance 50 650 PT 13.0 SEC (12.0-15.0) 01/23/19 18:15 INR 1.02 (0.83-1.16) 01/23/19 18:15 - Physical Exam Constitutional: no apparent distress, uncomfortable, cachectic Eyes: PERRL, anicteric sclera, EOMI Ears, Nose, Mouth, Throat: moist mucous membranes, hearing normal, ears appear normal Cardiovascular: regular rate and rhythym, No JVD, No edema Respiratory: no respiratory distress, no rales or rhonchi, reduced air movement Gastrointestinal: normoactive bowel sounds, No tenderness, No ascites Skin: warm, normal color, No mottled Musculoskeletal: joint tenderness, pain with ROM, generalized weakness Neurologic: AAOx3 Psychiatric: interacting appropriately, not anxious, not encephalopathic, thought process linear ICD10 Worksheet Patient Problems: Problems Problem Status Onset Fall from ground level Acute Closed fracture of humerus Acute
[2019-01-27] MEDS: ENOXAPARIN 30 MG/0.3 ML SYR SC SCH (15:45)
--- NOTE | 2019-01-27 16:14 | ASMTCMCOM ---
CM Note CM Note Notes: Met with pt, she has chosen [facility], CM left dtr a voicemail. Will likely dc tomorrow. DC Plan: [facility] Date Signed: 01/27/2019 04:14 PM Electronically Signed By:Gemma Yadav RN
[2019-01-27] MEDS: amLODIPine BESYLATE 5 MG TAB PO SCH (21:48)
[2019-01-28 07:42] VITALS: BP 123/66
[2019-01-28] MEDS: SENNOSIDES/DOCUSATE SODIUM TAB PO SCH (08:00)
[2019-01-28] MEDS: DORZOLAMIDE/TIMOLOL 10 ML OPHT.BTL EACHEYE SCH (08:01)
--- NOTE | 2019-01-28 08:12 | HOSPPROG ---
Hospitalist Progress Note Assessment/Plan: 78-year-old female with h/o HTN, osteoporosis, glaucoma admitted with humerus fracture after mechanical fall.. First encounter, chart reviewed. #Closed fracture of proximal humerus -s/p ORIF day #3 #Gait instability w fall #Hypoxemia -multifactorial -severe scoliosis and tobacco use #Anemia -chronic and blood loss #Hyponatremia - improved after NS #Hypertension - cont home norvasc #glaucoma - cont home drops #nicotine dependence #dvt pplx -Lovenox #underweight w a BMI of 14 #plan: dc to SNF likely today, to go to [facility] Subjective: Ariana has no complaints. Objective: Vital Signs Temp Pulse Resp BP Pulse Ox 36.8 C 88 17 123/66 H 92 01/28/19 07:41 01/28/19 07:41 01/28/19 07:41 01/28/19 07:41 01/28/19 07:41 Laboratory Results 01/27/19 04:19 01/27/19 01/28/19 01/29/19 05:59 05:59 05:59 Intake Total 1200 750 Output Total 550 300 Balance 650 450 PT 13.0 SEC (12.0-15.0) 01/23/19 18:15 INR 1.02 (0.83-1.16) 01/23/19 18:15 - Physical Exam Constitutional: chronically ill appearing, cachectic Eyes: PERRL Ears, Nose, Mouth, Throat: hearing normal Cardiovascular: regular rate and rhythym Respiratory: no respiratory distress, reduced air movement Gastrointestinal: normoactive bowel sounds Skin: warm Musculoskeletal: generalized weakness Neurologic: AAOx3 Psychiatric: interacting appropriately ICD10 Worksheet Patient Problems: Problems Problem Status Onset Closed fracture of humerus Acute Fall from ground level Acute
[2019-01-28] MEDS: BRIMONIDINE 0.2% 5 ML OPHT.BTL RTEYE SCH (08:16)
--- NOTE | 2019-01-28 11:10 | PDIAF ---
- Diagnosis Diagnosis: fx of proximal humerus s/p repair, underweight, nicotine dependence Code Status: Full Code - Medication Management Discharge Medications: electronically signed and located in the Home Medication List. - Orders Services needed: Physical Therapy, Occupational Therapy Diet Recommendation: no restrictions on diet Diet Texture: Regular Texture Diet Additional Instructions: continue the Lovenox until patient is more mobile, then stop f/u with Dr Wynn in 2 weeks - Follow Up Care Current Providers and Referrals: Trice Briscoe MD [Primary Care Provider] - As per Instructions Vahid Wynn MD [Medical Doctor] -
--- NOTE | 2019-01-28 11:28 | GDS ---
[f rep st] DISCHARGE SUMMARY DISCHARGE DIAGNOSES: 1. Closed fracture of the proximal humerus, status post open reduction and internal fixation. 2. Gait instability. 3. Hypoxemia. 4. Anemia. 5. Hyponatremia. 6. Hypertension. 7. Glaucoma. 8. Nicotine dependence. CONSULTATION: Dr. Vahid Wynn. HISTORY: Briefly, the patient is a 78-year-old female with a history of hypertension, osteoporosis, glaucoma. She was admitted with a humerus fracture after falling. She had surgery with Dr. Wynn. S he has done very well with surgery. She will go to a fpc facility for rehabilitation. HOSPITAL COURSE BY PROBLEM: 1. Closed fracture of the proximal humerus. She is status post ORIF, day #3, doing quite well. 2. Gait instability with fall. Working with PT and OT. 3. Hypoxemia. This is multifactorial. She has severe scoliosis. Also, she is nicotine dependent. 4. Anemia, stable. 5. Hyponatremia, improved. 6. Hypertension, on Norvasc. 7. Glaucoma, on eye drops. 8. Nicotine dependence. Cessation is recommended. DISCHARGE CONDITION: Stable. Blood pressure is 122/66, heart rate of 88, respiratory rate of 17, O2 sats on 2 L are 92%, temperature is 36.8 Celsius. MEDICATIONS AT DISCHARGE: Please see the EMR. DISCHARGE INSTRUCTIONS: 1. Follow up with Dr. Wynn in 2 weeks. 2. If she develops fever, chills, chest pain, or shortness of breath, to return to the ER. Greater than 30 minutes discharging and coordinating care. /[id number]/MODL
--- NOTE | 2019-01-28 12:11 | ASMTLACE ---
[facility] Length of stay for Answers: 3 days current admission Acuity / Level of Answers: Yes Care: Did the patient have an inpatient admission? Comorbidities - select Answers: Other Notes: HTN, osteoporosis, glau com all that apply a # of Emergency department Answers: 1-2 visits in the last 6 months Score: 8 Date Signed: 01/28/2019 12:11 PM Electronically Signed By:Gemma Yadav RN
--- NOTE | 2019-01-28 12:39 | ASMTDCNOTE ---
Case Management Discharge Discharge Order Complete? Answers: Yes Patient to Obtain Answers: Other Notes: [facility] Transportation Arranged Answers: Other Transport will Pick (Date 01/28/2019 03:00 PM & Time) Faxed Final Orders Answers: Yes Family Notified Answers: Yes Discharge Comments Notes: D/w ACCOUNTING TECHNICIAN, final orders faxed. Jason at [facility] notified, RN to call report. Date Signed: 01/28/2019 12:39 PM Electronically Signed By:Gemma Yadav RN
--- NOTE | 2019-01-28 13:40 | CPEKG ---
Test Reason : OPEN Blood Pressure : / mmHG Vent. Rate : 107 BPM Atrial Rate : 106 BPM P-R Int : 135 ms QRS Dur : 078 ms QT Int : 353 ms P-R-T Axes : 052 -22 066 degrees QTc Int : 471 ms Sinus tachycardia Borderline left axis deviation Confirmed by Arabella Medina ([id number]) on 01/28/2019 1:40:18 PM Referred By: Samir Trejo Confirmed By:Arabella Medina
--- NOTE | 2019-01-28 16:08 | ASDISCHSUM ---
Discharge Information Plan Status:SNF Medically Cleared to Leave: Discharge Date:01/28/2019 03:22 PM CM D/C Disposition:Senior Living Facility ADT D/C Disposition:Senior Living Facility Projected Discharge Date:01/26/2019 11:00 AM Transportation at D/C:Wheelchair Van Discharge Delay Reason: Follow-Up Date:01/26/2019 11:00 AM Discharge Slot: Final Diagnosis: Placement Information Referral Type:*Residential/SNF Referral ID:[id number] Provider Name:Alison Curry Address 1:[address] Phone Number: Address 2: Fax Number: City:[place] Selection Factors: State:[place] Patient Contact Information Contact Name:CARLOS Relationship:Daughter Address: Work Phone: City: [facility] Phone: [facility] Code: Email: Financial Information Financial Class:Medicare Advantage Plans Primary Plan Desc[facility] Primary Plan Number:[id number] Secondary Plan Desc: Secondary Plan Number: Assessment Information LACE LACE Length of stay for Answers: 3 days current admission Acuity / Level of Answers: Yes Care: Did the patient have an inpatient admission? Comorbidities - select Answers: Other Notes: HTN, osteoporosis, glau com all that apply a # of Emergency department Answers: 1-2 visits in the last 6 months Score: 8 Date Signed: 01/28/2019 12:11 PM Electronically Signed By:Gemma Yadav RN [facility] Progress Note CM Note CM Note Notes: 01/24/2019 Case Management Note Discussed pt during rounds this morning. Pt admitted for closed left humerus fracture. Surgery is planned for [address]. Therapy evals are pending. Discharge needs will be determined after surgery. Case Management d/c poc: to be determined. Case Management to follow. Date Signed: 01/24/2019 02:44 PM Electronically Signed By:Trice Moscoso RN [facility] Progress Note CM Note CM Note Notes: CM met with 78- year old female. Patient goes by the name Lisette. She came in because she fell over her dog and fractured her left humerus. Patient has a history of HTN, osteporosis, glaucoma and remote history of gastric ulcer, and lives alone. Patient's daughter lives in [place]. PT recommends SNF. Spoke with pt and the daughter in the room and pt agreed to [facility] or [facility] stating that daughter will care for dogs while pt is in rehab. Referrals sent. Pt could dc tomorrow if SNF accepts. CM to follow. Plan: [facility] Date Signed: 01/26/2019 05:26 PM Electronically Signed By:Merary Lara [facility] Progress Note CM Note CM Note Notes: Met with pt, she has chosen [facility] left dtr a voicemail. Will likely dc tomorrow. DC Plan: [facility] Date Signed: 01/27/2019 04:14 PM Electronically Signed By:Gemma Yadav RN Case Management Discharge Plan Note Case Management Discharge Discharge Order Complete? Answers: Yes Patient to Obtain Answers: Other Notes: [facility] Transportation Arranged Answers: Other Transport will Pick (Date 01/28/2019 03:00 PM & Time) Faxed Final Orders Answers: Yes Family Notified Answers: Yes Discharge Comments Notes: D/w SHOE HANDLER, final orders faxed. Jason at [facility] notified, RN to call report. Date Signed: 01/28/2019 12:39 PM Electronically Signed By:Gemma Yadav RN Intervention Information Intervention Type:*IM-Signed Date of Service:01/27/2019 11:15 AM Patient Type:Inpatient Staff Member:Reanna Martines Hours: Discipline: Severity: Comment:
[2019-01-28] MEDS ORDERED: PRESERVISION AREDS2 FORMULA EYE VIT 1 EACH PO SCH (21:00)
== END 2019-01-28 15:22 | DRG 493 ==
LOC: F2W 20:54 → OBSVTOIN 01-24 14:46 → F3N 01-24 14:50
PROVIDERS: ADMIT Family Medicine; ATTEND Internal Medicine
PROC: 0PSD04Z Reposition Left Humeral Head with Internal Fixation Device, Open Approach (ICD-10-PCS; principal; 2019-01-25 14:00)
DX: S42.212A Unspecified displaced fracture of surgical neck of left humerus, initial encounter for closed fracture (principal); W01.0XXA Fall on same level from slipping, tripping and stumbling without subsequent striking against object, initial encounter; Y92.019 Unspecified place in single-family (private) house as the place of occurrence of the external cause; E87.1 Hypo-osmolality and hyponatremia; D62 Acute posthemorrhagic anemia; R63.6 Underweight; Z68.1 Body mass index [BMI] 19.9 or less, adult; R09.02 Hypoxemia; R00.0 Tachycardia, unspecified; I10 Essential (primary) hypertension; M81.0 Age-related osteoporosis without current pathological fracture; D64.9 Anemia, unspecified; Z72.0 Tobacco use; M41.9 Scoliosis, unspecified; R26.81 Unsteadiness on feet
CPT/HCPCS: 97116-GP; 97161-GP; 97166-GO; 97530-GO; 97530-GP; 97535-GO; C1713; G0378; J0690; J1650; J2405; J2704; J2795; J3010